=== PATIENT | female | born 1995 | race Two or more races ===

== ENCOUNTER 2018-02-06 10:45 | Outpatient (CLI) | END 2018-02-06 10:46 | LOC: LAB 10:45 | PROVIDERS: ATTEND Internal Medicine | DX: R53.83 Other fatigue (principal); H66.90 Otitis media, unspecified, unspecified ear; Z13.9 Encounter for screening, unspecified | CPT/HCPCS: 36415; 80053; 80061; 83036; 84439; 84443; 85008; 85025 ==